=== PATIENT | female | born 1950 | race Caucasian/White ===

== ENCOUNTER 2019-12-24 09:47 | Emergency (ER) | payer SELFPAY ==
[2019-12-24] MEDS ORDERED: Ondansetron 4 MG Tab.DIS PO ONE (12:36)
[2019-12-24] MEDS ORDERED: Acetaminophen 500 MG Tab PO ONE (12:36)
--- NOTE | 2019-12-24 13:48 | EDM.PDOC ---
ED HPI GENERAL MEDICAL PROBLEM - General Chief Complaint: Syncope Stated Complaint: MED[facility] Time Seen by Provider: 12/24/19 13:20 Source of Information: Reports: Patient, Old Records, RN History Limitations: Reports: No Limitations - History of Present Illness INITIAL COMMENTS - FREE TEXT/NARRATIVE: 69 yo female presents with complaints of near syncope and nausea. Was dx with Covid about a week ago. Is not SOB. Minimal cough. Has been running low grade fevers at times. No hx of afib, V-tach, or SVT. No recent diarrhea or melena. Has no meds at home for nausea. Was sitting in a car and felt like she might pass out before arrival. Onset: Today, Sudden Onset Date: 12/24/19 Duration: Minutes: Location: Reports: Generalized Quality: Reports: Other (no pain) Severity: Moderate Improves with: Reports: Other (time) Worsens with: Reports: Other (Unsure) Context: Reports: Other (Covid +) Associated Symptoms: Reports: Cough (occasional), Loss of Appetite, Malaise, Nausea/Vomiting, Syncope (near). Denies: Confusion, Chest Pain, Fever/Chills, Rash, Seizure, Shortness of Breath Treatments COUNTY HISTORIAN: Reports: Other (see below) (none) - Related Data Allergies Allergy/AdvReac Type Severity Reaction Status Date / Time No Known Allergies Allergy Verified 12/24/19 10:23 Home Meds: Home Meds Ascorbate Calcium [Vitamin C] 500 mg PO DAILY 12/24/19 [History] Calcium Carbonate [Calcium] 500 mg PO DAILY 12/24/19 [History] Clopidogrel [Plavix] 75 mg PO DAILY 12/24/19 [History] Ezetimibe [Zetia] 10 mg PO DAILY 12/24/19 [History] Ondansetron [Zofran ODT] 4 mg PO Q6H PRN #112 tab.dis 12/24/19 [Rx] Triamterene/Hydrochlorothiazid [Triamterene-HCTZ 37.5-25 MG] 1 tab PO DAILY 12/24/19 [History] atorvaSTATin [Lipitor] 40 mg PO BEDTIME 12/24/19 [History] Past Medical History Cardiovascular History: Reports: Hypertension [employer] History: Reports: Neurological History: Reports: TIA Oncologic (Cancer) History: Reports: Basal Cell Carcinoma - Past Surgical History Dermatological Surgical History: Reports: Skin Biopsy Social & Family History - Tobacco Use Tobacco Use Status *Q: Never Tobacco User - Recreational Drug Use Recreational Drug Use: No ED ROS GENERAL - Review of Systems Review Of Systems: See Below Constitutional: Reports: No Symptoms, Malaise, Decreased Appetite HEENT: Reports: No Symptoms Respiratory: Reports: Cough (rare) GI/Abdominal: Reports: Anorexia, Nausea. Denies: Black Stool, Constipation, Diarrhea : Reports: No Symptoms Musculoskeletal: Reports: No Symptoms Skin: Reports: No Symptoms Neurological: Reports: No Symptoms - Physical Exam Exam: See Below Exam Limited By: No Limitations General Appearance: Alert, WD/WN, No Apparent Distress Eye Exam: Bilateral Eye: Normal Inspection Ears: Normal External Exam, Normal Canal, Hearing Grossly Normal, Normal TMs Nose: Normal Inspection, No Blood Throat/Mouth: Normal Inspection, Normal Lips, Normal Oropharynx, Normal Voice, No Airway Compromise Head Exam: Atraumatic, Normocephalic Neck: Normal Inspection Respiratory/Chest: No Respiratory Distress, Lungs Clear, Normal Breath Sounds, No Accessory Muscle Use Cardiovascular: Regular Rate, Rhythm, No Edema GI/Abdominal: Normal Bowel Sounds, Soft, Non-Tender, No Distention Neuro Exam (Abbreviated): Alert, Oriented, CN II-XII Intact, Normal Cognition, No Motor/Sensory Deficits Back Exam: Normal Inspection. No: CVA Tenderness (R), CVA Tenderness (L) Extremities: Normal Inspection, Normal Range of Motion, Non-Tender, No Pedal Edema Psychiatric: Normal Affect, Normal Mood Skin Exam: Warm, Dry, Intact, Normal Color, No Rash Course - Vital Signs Last Recorded V/S: Last Vital Signs Temp 36.5 C 12/24/19 10:30 Pulse 74 12/24/19 10:30 Resp 16 12/24/19 10:30 BP 152/70 H 12/24/19 10:30 Pulse Ox 98 12/24/19 10:30 - Orders/Labs/Meds Orders: Active Orders 24 hr Category Date Time Status Orthostatic Vital Signs [RC] ASDIRECTED Care 12/24/19 10:38 Active Labs: Laboratory Tests 12/24/19 12/24/19 12/24/19 Range/Units 10:55 10:58 10:58 WBC 4.1 L (4.5-11.0) K/uL RBC 4.61 (3.30-5.50) M/uL Hgb 13.2 (12.0-15.0) g/dL Hct 39.9 (36.0-48.0) % MCV 87 (80-98) fL MCH 29 (27-31) pg MCHC 33 (32-36) % Plt Count 221 (150-400) K/uL D-Dimer, Quantitative 296.03 (0.0-500.0) ng/mL Sodium 128 L (140-148) mmol/L Potassium 3.5 L (3.6-5.2) mmol/L Chloride 89 L (100-108) mmol/L Carbon Dioxide 29 (21-32) mmol/L Anion Gap 13.5 (5.0-14.0) mmol/L BUN 8 (7-18) mg/dL Creatinine 0.7 (0.6-1.0) mg/dL Est Cr Clr Drug Dosing 69.01 mL/min Estimated GFR (MDRD) > 60 (>60) Glucose 127 H (74-106) mg/dL Calcium 9.0 (8.5-10.1) mg/dL Troponin I < 0.017 (0.000-0.056) ng/mL Meds: Medications Discontinued Medications Generic Name Dose Route Start Last Admin Trade Name Freq PRN Reason Stop Dose Admin Acetaminophen 1,000 mg 12/24/19 12:36 12/24/19 12:45 Tylenol Extra Strength PO 12/24/19 12:37 1,000 mg ONETIME ONE Administration Ondansetron HCl 4 mg 12/24/19 12:36 12/24/19 12:45 Zofran Odt PO 12/24/19 12:37 4 mg ONETIME ONE Administration - Re-Assessments/Exams Free Text/Narrative Re-Assessment/Exam: 12/24/19 13:47 Feels better after Zofran Departure - Departure Time of Disposition: 13:48 Disposition: Home, Self-Care 01 Condition: Fair Clinical Impression: COVID-19, Nausea - Discharge Information *PRESCRIPTION DRUG MONITORING PROGRAM REVIEWED*: Not Applicable *COPY OF PRESCRIPTION DRUG MONITORING REPORT IN PATIENT [place]: Not Applicable Prescriptions: Ondansetron [Zofran ODT] 4 mg PO Q6H PRN #112 tab.dis PRN Reason: Nausea Instructions: Nausea and Vomiting, Adult, [id number] Referrals: PCP,None [Primary Care Provider] - Additional Instructions: Use Zofran as directed. Add acetaminophen as needed for fever control. Recheck as needed. Continue isolation for about another week. Sepsis Event Note (ED) - Evaluation Sepsis Screening Result: No Definite Risk - Focused Exam Vital Signs: Vital Signs Temp Pulse Resp BP Pulse Ox 12/24/19 10:30 36.5 C 74 16 152/70 H 98 - My Orders Last 24 Hours: My Active Orders 12/24/19 10:38 Orthostatic Vital Signs [RC] ASDIRECTED - Assessment/Plan Last 24 Hours: My Active Orders 12/24/19 10:38 Orthostatic Vital Signs [RC] ASDIRECTED
== END 2019-12-24 14:20 | disposition home or self-care (01) ==
LOC: JP.ED 09:47
DX: U07.1 COVID-19 (principal); I10 Essential (primary) hypertension; Z86.73 Personal history of transient ischemic attack (TIA), and cerebral infarction without residual deficits; Z79.02 Long term (current) use of antithrombotics/antiplatelets; Z79.899 Other long term (current) drug therapy
CPT/HCPCS: 36415; 80048; 84484; 85027; 85379; 99284; A9270

== ENCOUNTER 2022-01-14 20:14 | Emergency (ER) | payer MEDICARE, OTHER ==
[2022-01-14] MEDS ORDERED: Ketorolac 30 MG/ML SDV IM ONE (21:28)
== END 2022-01-14 21:55 | disposition home or self-care (01) ==
LOC: JP.ED 20:14
DX: M62.838 Other muscle spasm (principal); M25.512 Pain in left shoulder; G89.29 Other chronic pain; M67.814 Other specified disorders of tendon, left shoulder; I10 Essential (primary) hypertension; Z86.73 Personal history of transient ischemic attack (TIA), and cerebral infarction without residual deficits; Z79.02 Long term (current) use of antithrombotics/antiplatelets
CPT/HCPCS: 96372; 99283; J1885

== ENCOUNTER 2023-06-01 14:07 | Emergency (ER) | payer MEDICARE, OTHER ==
[2023-06-01 14:56] LABS: BASOPHILS PERCENT AUTO 0.2 % (0.1-1.3); EOSINOPHILS ABSOLUTE AUTO 0.03 K/uL (0.00-0.40); EOSINOPHILS PERCENT AUTO 0.5 % (0.0-5.4); HEMATOCRIT 35.2 % (34.3-46.0); HEMOGLOBIN 11.8 g/dL (11.2-15.5); IMMATURE GRAN PERCENT AUTO 0.2 % (0.0-0.7); LYMPHOCYTES ABSOLUTE AUTO 1.04 K/uL (0.8-3.3); MEAN CORPUSCULAR HEMOGLOBIN 29.2 pg (31.6-35.5); MEAN CORPUSCULAR HGB CONC 33.5 g/dL (31.6-35.5); MEAN CORPUSCULAR VOLUME 87.1 fL (81.4-99.0); MONOCYTES ABSOLUTE AUTO 0.29 K/uL (0.20-0.90); MONOCYTES PERCENT AUTO 5.3 % (3.3-12.6); NEUTROPHILS PERCENT AUTO 74.8 % (40.0-78.1); PLATELET COUNT,PLT 272 K/uL (130-375); RED BLOOD CELL COUNT 4.04 M/uL (3.77-5.24); WHITE BLOOD CELL COUNT,WBC 5.5 K/uL (3.2-11.0)
[2023-06-01 14:58] LABS: BASOPHILS ABSOLUTE AUTO 0.01 K/uL (0.00-0.10); IMMATURE GRAN ABSOLUTE AUTO 0.01 K/uL (0.00-0.23)
[2023-06-01 15:18] LABS: PROTHROMBIN TIME 10.2 sec (9.2-10.6)
[2023-06-01 15:26] LABS: APPEARANCE,URINE CLEAR (CLEAR); BILIRUBIN,URINE NEGATIVE (NEGATIVE); COLOR,URINE YELLOW (YELLOW); GLUCOSE,URINE NEGATIVE (NEGATIVE); KETONES,URINE NEGATIVE (NEGATIVE); LEUKOCYTE ESTERASE,URINE NEGATIVE (NEGATIVE); NITRITE,URINE NEGATIVE (NEGATIVE); OCCULT BLOOD,URINE NEGATIVE (NEGATIVE); PROTEIN,URINE NEGATIVE (NEGATIVE); UROBILINOGEN,URINE 0.2 EU/dL (0.2-1.0)
[2023-06-01 15:28] LABS: A/G RATIO 1.1 (1.2-2.2); ALANINE AMINOTRANSFERASE,ALT 44 U/L (12-78); ALBUMIN 3.8 g/dL (3.4-5.0); ALKALINE PHOSPHATASE 81 U/L (46-116); ASPARTATE AMNIOTRANSFERASE,AST 27 U/L (15-37); BILIRUBIN TOTAL 0.4 mg/dL (0.2-1.0); BLOOD UREA NITROGEN,BUN 14 mg/dL (7-18); CALCIUM 9.3 mg/dL (8.5-10.1); CARBON DIOXIDE,CO2 27 mmol/L (21-32); CHLORIDE,CL 99 mmol/L (100-108); CREATININE 0.7 mg/dL (0.6-1.0); EST CRCL DRUG DOSING (CG) 65.01 mL/min; ESTIMATED GFR 90 mL/min (>60); GLUCOSE RANDOM 155 mg/dL (74-106); POTASSIUM,K 4.1 mmol/L (3.6-5.2); PRO B-TYPE NATRIUR PEPT,BNPPRO 32 pg/mL (5-450); PROTEIN TOTAL,TP 7.4 g/dL (6.4-8.2); SODIUM,NA 135 mmol/L (140-148)
[2023-06-01 15:29] LABS: ANION GAP 13.1 mmol/L (5.0-14.0)
[2023-06-01 15:33] LABS: AMORPHOUS SEDIMENT,URINE NOT SEEN; BACTERIA,URINE RARE; EPITHELIAL CELLS,URINE RARE; MUCUS,URINE RARE; RBC,URINE 0-5 (0-5); WBC,URINE 0-5 (0-5)
== END 2023-06-01 16:08 | disposition home or self-care (01) ==
LOC: JP.ED 14:07
DX: R07.89 Other chest pain (principal); I10 Essential (primary) hypertension; Z79.02 Long term (current) use of antithrombotics/antiplatelets; Z79.899 Other long term (current) drug therapy; Z86.16 Personal history of COVID-19; Z86.73 Personal history of transient ischemic attack (TIA), and cerebral infarction without residual deficits
CPT/HCPCS: 36415; 71045; 71045-26; 80053; 81001; 83605; 83880; 84484; 85025; 85379; 85610; 99285